=== PATIENT | female | born 1980 | race African-American/Black ===

== ENCOUNTER 2022-07-09 10:26 | Emergency (ER) | payer OTHER ==
[~2022-07-09] VITALS: Ht 162.6 cm; Wt 90.0 kg
[~2022-07-09 10:26] MED LIST: TYLENOL
[2022-07-09 11:00] VITALS: BP 155/82
[2022-07-09 11:48] LABS: EOSINOPHILS % 2.8 % (0.0-5.0); HEMOGLOBIN. 8.1 g/dL (12.0-16.0); MEAN CORPUSCULAR HEMOGLOBIN 30.4 pg (28.0-32.0); MEAN CORPUSCULAR VOLUME 93.9 fL (81.0-99.0); MEAN PLATELET VOLUME 8.6 fl (7.4-10.4); MONOCYTES % 5.7 % (2.0-8.0); NEUTROPHILS % 66.5 % (40.0-76.0); PLATELET 289 x1000/uL (130-400); RED BLOOD CELL COUNT 2.66 mill/uL (4.2-5.4); RED CELL DISTRIBUTION WIDTH 15.3 % (11.6-14.6)
[2022-07-09 11:52] LABS: CHLORIDE 112 mEq/L (98-107)
[2022-07-09 11:55] LABS: PARTIAL THROMBOPLASTIN TIME 26.8 sec (23.4-31.0); PROTHROMBIN TIME 11.1 sec (9.6-11.0)
[2022-07-09 13:01] LABS: HCG SCREEN NEGATIVE
[2022-07-09] MEDS ORDERED: FERR210T MT (13:32)
== END 2022-07-09 14:32 | disposition home or self-care (01) ==
LOC: ER 10:26
DX: D50.9 Iron deficiency anemia, unspecified (principal); E11.9 Type 2 diabetes mellitus without complications; Z87.442 Personal history of urinary calculi
CPT/HCPCS: 36415; 80053; 83690; 84703; 85025; 85610; 85730; 86850; 86900; 86901; 99283; Z7610